=== PATIENT | female | born 1965 | race Caucasian/White ===

== ENCOUNTER 2018-07-19 09:20 | Emergency (ER) | payer OTHER ==
[~2018-07-19] VITALS: Ht 144.8 cm; Wt 69.1 kg
[2018-07-19] MEDS ORDERED: ERYTHROMYCIN O3.5 GM OU (10:20)
[2018-07-19] MEDS ORDERED: ACULAR LS0.4 % OD (10:20)
[2018-07-19 10:25] VITALS: BP 112/75
== END 2018-07-19 10:25 | disposition home or self-care (01) | DRG 125 ==
LOC: ED 09:20
DX: H10.31 Unspecified acute conjunctivitis, right eye (principal); H57.11 Ocular pain, right eye